=== PATIENT | male | born 1950 | race Caucasian/White ===

== ENCOUNTER 2017-02-07 07:00 | Day surgery (SDC) | payer MEDICARE, OTHER ==
[~2017-02-07] VITALS: Ht 175.3 cm; Wt 95.2 kg
[~2017-02-07 07:00] MED LIST: BUPR150T8 PO; ERGO2000 PO; ESOM40CA41 PO; LISI10TA PO; Sodium Chloride LOK Flush 10 mL Syringe IV PRN; fentaNYL-PF 50 mCg/mL 2 mL Inj IVPUSH PRN
[2017-02-07 07:23] VITALS: BP 152/80; PULSE 87; RESP 14; O2SAT 100
[2017-02-07] MEDS ORDERED: 0.9% Sodium Chloride 1,000 ML IV ONE (08:11)
[2017-02-07 08:21] VITALS: BP 117/70; PULSE 75; RESP 14; O2SAT 99
[2017-02-07 08:31] VITALS: BP 111/73; PULSE 89; RESP 16; O2SAT 100
--- NOTE | 2017-02-07 09:06 | ENDO ---
[address] [address] ENDOSCOPY PROCEDURE PATIENT: ROSALES JOSEPH : 1950 MR#: [id number] ADMIT: 02/07/2017 JOB ID: [id number] DATE: 02/07/2017 TYPE OF OPERATION: 1. Esophagogastroduodenoscopy with biopsy. 2. Colonoscopy with hot snare polypectomy. PREOPERATIVE DIAGNOSIS(ES): Cummings esophagus and colorectal cancer. POSTOPERATIVE DIAGNOSIS(ES): 1. Irregular Z-line. 2. Medium-sized hiatal hernia. 3. Distal esophagitis. 4. Mild nonerosive gastritis. 5. A 5 mm sigmoid colon polyp removed by hot snare polypectomy. ANESTHESIA: 1. Fentanyl 100 mcg. 2. Versed 4 mg IV administered. COMPLICATIONS: None. BLOOD LOSS: Minimal. DESCRIPTION OF PROCEDURE: After risks and benefits were explained to the patient, informed consent was obtained. After anesthesia administered, upper endoscope was then inserted into the mouth, intubated into the esophagus, stomach, second portion of duodenum. Mucosa carefully examined. After procedure was done, the scope was withdrawn and procedure terminated. Colonoscope was then inserted from rectum to cecum. Mucosa carefully examined. Prep of the patient was excellent. After procedure was done, the scope withdrawn and procedure terminated. FINDINGS: Upon inspection of the esophagus, there was irregular Z that was noted in the distal esophagus. Z-line located 45 cm from incisor. There was some [id number] erosive distal esophagitis. Upon entry into the stomach, there was a mild nonerosive gastritis. No masses, ulcers, or lesions seen. Retroflexion showed a medium-sized hiatal hernia. Duodenal bulb, first and second portion normal. Biopsies taken from the antrum, body and distal esophagus. Upon inspection of the anus, no masses, hemorrhoids, ulcers, or fissures that were seen. Throughout the entire examination, there is a 5 mm sigmoid colon polyp removed by hot snare polypectomy. Retroflexion was normal. IMPRESSIONS: 1. A 5 mm sigmoid colon polyp removed by hot snare polypectomy. 2. Irregular Z-line. 3. Medium-sized hiatal hernia. 4. Distal erosive esophagitis. 5. Mild nonerosive gastritis. RECOMMENDATION: 1. Await pathology results. 2. Continue Nexium. 3. Followup in GI clinic with Bladimir Figueroa as needed, and if tubular adenoma, then repeat colonoscopy in five years.
--- NOTE | 2017-02-10 14:08 | PATH ---
SURGICAL PATHOLOGY Attending Physician:Emerson Calloway MD CASE STATUS: Signed Out PATIENT NAME: ROSALES JOSEPH PID: [id number] : 1950 DATE COLLECTED:02/07/2017 20:38 SPECIMEN: 1: Stomach, Antrum, Biopsy 2: Gastric, Biopsy 3: Esophagus, Biopsy 4: Colon, Biopsy CLINICAL HISTORY: 1). ANTRUM BIOPSY 2). BODY BIOPSY 3). DISTAL ESOPHAGUS BIOPSY 4). SIGMOID POLYP FINAL DIAGNOSIS: 1.GASTRIC ANTRUM BIOPSY: MINIMAL CHRONIC GASTRITIS INVOLVING ANTRAL MUCOSA. Negative for evidence of Helicobacter. Negative for intestinal metaplasia. Negative for dysplasia and malignancy. 2.GASTRIC BODY BIOPSY: FOCAL MINIMAL CHRONIC GASTRITIS INVOLVING FUNDIC MUCOSA. Negative for evidence of Helicobacter. Negative for intestinal metaplasia. Negative for dysplasia and malignancy. 3.DISTAL ESOPHAGUS BIOPSY: SQUAMOUS MUCOSA AND GASTRIC CARDIA-TYPE MUCOSA NEGATIVE FOR SPECIALIZED METAPLASIA OF LUND' S-TYPE ESOPHAGUS. Negative for dysplasia and malignancy. Negative for squamous intraepithelial eosinophils. 4.SIGMOID COLON POLYP: TUBULAR ADENOMA INVOLVING BOTH BIOPSY FRAGMENTS. ICD10 code D12.5 GROSS DESCRIPTION: Received are four formalin-filled containers, each labeled with the patient' s name. 1. Received in formalin, labeled with the patient' s name and "antrum BX", are two fragments of phipps, soft tissue ranging in size from 0.2 x 0.1 x 0.1 cm to 0.2 x 0.2 x 0.2 cm. All fragments are totally submitted in cassette 1A. 2. Received in formalin, labeled with the patient' s name and "body BX", are two fragments of phipps, soft tissue ranging in size from 0.1 x 0.1 x 0.1 cm to 0.2 x 0.1 x 0.1 cm. All fragments are totally submitted in cassette 2A. 3. Received in formalin, labeled with the patient' s name and "distal esophagus BX", are two fragments of phipps, soft tissue ranging in size from 0.1 x 0.1 x 0.1 cm to 0.2 x 0.1 x 0.1 cm. All fragments are totally submitted in cassette 3A. 4. Received in formalin, labeled with the patient' s name and "sigmoid polyp", are two fragments of phipps, soft tissue ranging in size from 0.1 x 0.1 x 0.1 cm to 0.2 x 0.1 x 0.1 cm. All fragments are totally submitted in cassette 4A. ([id number]) MICRO DESCRIPTION: See diagnosis. ICD-9 CODES: CPT CODES: 1: 20817 2: 19774 3: 31701 4: 16537 Electronically Signed Out Joseph Rowan MD [facility] Pathology [facility] [address], [place] [address] Technical component performed at [facility], [address], [place], [address]
== END 2017-02-07 23:59 | disposition home or self-care (01) ==
LOC: END 07:00
PROVIDERS: ATTEND Internal Medicine Gastroenterology
DX: Z12.11 Encounter for screening for malignant neoplasm of colon (principal); Z86.010 Personal history of colon polyps; D12.5 Benign neoplasm of sigmoid colon; K29.50 Unspecified chronic gastritis without bleeding; K20.8 Other esophagitis; K44.9 Diaphragmatic hernia without obstruction or gangrene; K22.70 Barrett's esophagus without dysplasia; K21.9 Gastro-esophageal reflux disease without esophagitis; I10 Essential (primary) hypertension; F32.9 Major depressive disorder, single episode, unspecified; F17.290 Nicotine dependence, other tobacco product, uncomplicated
CPT/HCPCS: 43239; 45385; 88305; 99153; G0500; J2250; J3010; J7030